=== PATIENT | male | born 1995 | race Caucasian/White ===

== ENCOUNTER 2023-03-07 09:58 | Emergency (ER) | payer OTHER, BC, SELFPAY ==
[2023-03-07 10:21] VITALS: BP 125/82
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
== END 2023-03-07 15:22 | disposition home or self-care (01) ==
LOC: EMR 09:58
PROVIDERS: EMERGENCY PHYSICIAN Emergency Medicine
DX: S10.93XA Contusion of unspecified part of neck, initial encounter (principal); Y92.410 Unspecified street and highway as the place of occurrence of the external cause
CPT/HCPCS: 99284; 70450; 71260; 72125; 73130; 74177; Q9967